=== PATIENT | female | born 1990 | race Caucasian/White ===

== ENCOUNTER 2017-01-03 11:05 | Emergency (ER) | payer SELFPAY ==
--- NOTE | 2017-01-03 14:52 | ED CLINICAL REPORT ---
Clinical Report - Physicians/Mid Levels [facility] [address] [place] [address] 01/03/2017 11:06 Patient: SHAD STEINER Time Seen: 1142; initial patient contact. Arrived- By private vehicle. Historian- patient. HISTORY OF PRESENT ILLNESS Chief Complaint: ABDOMINAL PAIN. It is described as sharp. No radiation. It is described as located in the right upper quadrant. This started past 2 days and is still present and worsening. It was abrupt in onset and has been constant but is not gone now. At its maximum, severity described as moderate. When seen in the E.D., severity described as moderate. Modifying factors. Not worsened by anything. Not relieved by anything. The patient has had nausea. No loss of appetite, vomiting or diarrhea. No additional abdominal pain. Similar symptoms previously: None. Recent medical care: Not recently seen/assessed. REVIEW OF SYSTEMS All systems otherwise negative, except as recorded above. PAST HISTORY See nurses notes. Problems: no known problems. Medications: Ibuprofen Oral 800 mg, PRN, last dose 0700. None. Allergies: No Known Drug Allergy. SOCIAL HISTORY Never smoker. Occasional alcohol use. History of occasional drug use: marijuana. No recent travel. Is a local resident. ADDITIONAL NOTES The nursing notes have been reviewed. PHYSICAL EXAM Vital Signs: 01/03/2017 11:10 BP: 125/78. HR: 82. RR: 18. O2 saturation: 100%. Temp: 98.2 F. Pain level now: 6/10. Blood pressure normal. Oxygen saturation normal. Appearance: Alert. Oriented X3. No acute distress. Eyes: Pupils equal, round and reactive to light. Eyes normal inspection. ENT: Ears normal. Nose normal. Pharynx normal. Neck: Normal inspection. Neck supple. CVS: Normal heart rate and rhythm. Heart sounds normal. Pulses normal. Respiratory: No respiratory distress. Breath sounds normal. Chest nontender. No rales, rhonchi or wheezes. Abdomen: Soft and nontender. Bowel sounds normal. Skin: Skin warm and dry. Normal skin color. No rash. Abnormal skin turgor. Extremities: Extremities exhibit normal ROM. No lower extremity edema. LABS, X-RAYS, AND EKG Abdominal Sonogram: Normal study. The gallbladder is normal. Common duct is normal. The study was independently viewed by me and interpreted by the radiologist. The study was discussed with the radiologist (via pacs). Laboratory Tests: UA-Culture if indicated: (BECK: 01/03/2017 11:20) ( [facility] 01/03/2017 13:40) Final results Test Result Flag Units (Reference) URINE COLOR YELLOW URINE APPEARANCE CLOUDY URINE GLUCOSE NEGATIVE (NEGATIVE) URINE BILIRUBIN NEGATIVE (NEGATIVE) URINE KETONE NEGATIVE (NEGATIVE) URINE SPECIFIC GRAVITY 1.025 (1.010-1.030) URINE PH 6.0 (5.0-8.0) URINE PROTEIN 1+ (NEGATIVE) URINE UROBILINOGEN 1.0 EU/dL (0.2-1.0) URINE NITRITE NEGATIVE (NEGATIVE) URINE BLOOD NEGATIVE (NEGATIVE) URINE LEUK ESTERASE NEGATIVE (NEGATIVE) URINE RBC NONE SEEN rbc/hpf (0-1) URINE WBC 1-3 wbc/hpf (0-1) URINE EPITHELIAL CELLS 3-5 EPI/hpf (0-5) URINE BACTERIA NONE SEEN (NONE SEEN) URINE COMMENT CULT NOT INDICATED 4+ MUCUSURINE CULTURES ARE SET-UP BASED ON THE FOLLOWING CRITERIA:POSITIVE NITRITEPOSITIVE LEUKOCYTE ESTERASEGREATER THAN 10 WHITE BLOOD CELLSMODERATE (2+) OR GREATER BACTERIA Urine: (BECK: 01/03/2017 13:10) ( [facility] 01/03/2017 13:32) Final results Test Result Flag Units (Reference) URINE NEGATIVE CBC w Diff: (BECK: 01/03/2017 13:10) ( [facility] 01/03/2017 13:52) Final results Test Result Flag Units (Reference) WHITE BLOOD COUNT 4.8 K/uL (4.5-11.5) RED BLOOD COUNT 4.20 M/uL (4.00-5.20) HEMOGLOBIN 12.3 gm/dL (12.0-16.0) HEMATOCRIT 36.8 % (36.0-46.0) MEAN CELL VOLUME 88 fL (80-100) MEAN CORPUSCULAR HGB 29 pg (26-34) MEAN CORPUSCULAR HGB CONC 34 g/dL (31-37) RED CELL DISTRIBUTION WIDTH 12.7 % (11.6-14.8) PLATELET COUNT 227 K/uL (150-400) NEUTROPHIL % 64.7 % (50-75) LYMPH % 25.8 % (25-40) MONO % 6.2 % (3-14) EOSINOPHIL % 2.8 % (0-4) BASOPHIL % 0.5 % (0-2) CMP: (BECK: 01/03/2017 13:10) ( MsgRcvd 01/03/2017 13:50) Final results Test Result Flag Units (Reference) GLUCOSE 85 mg/dL (70-110) BUN 10 mg/dL (7-18) CREATININE 0.4 L mg/dL (0.6-1.3) Estimated GFR >60 mL/min Estimated GFR- >60 mL/min Note: Persistent reduction over 3 months in eGFR<60 mL/min/1.73 m2 defines CKD. Patients with eGFR values>=60 mL/min/1.73 m2 may also have CKD if evidence ofpersistent proteinuria. Additional information may be foundat www.kidney.org. SODIUM 142 mmol/L (136-145) POTASSIUM 3.5 mmol/L (3.5-5.1) CHLORIDE 105 mmol/L (98-107) CARBON DIOXIDE 31 mmol/L (21-32) CALCIUM 8.3 L mg/dL (8.5-10.1) TOTAL PROTEIN 6.3 L g/dL (6.4-8.2) ALBUMIN 3.4 g/dL (3.3-5.0) BILIRUBIN, TOTAL 0.4 mg/dL (0.0-1.0) ALKALINE PHOSPHATASE 53 U/L (46-116) AST (SGOT) 21 U/L (15-37) ALT (SGPT) 26 U/L (12-78) LIPASE 121 U/L (73-393) . PROGRESS AND PROCEDURES Course of Care: the patient is a 26 female presenting for eval ration of right upper quadrant abdominal pain. When directly asked the patient where abdominal pain is, patient points to the right upper quadrant. This is in contrast was accorded fromnursing triage notes. Patient without tenderness in the right lower quadrant. Do not feel patient has acute appendicitis. At this time differential diagnosis includes biliary colic, gastritis, pancreatitis, urinary tract infection. Patient also with history of recent NSAID use. The patient's workup was remarkable for the findings above. No acute findings noted on patient's ultrasound. Urinalysis and laboratory studies are otherwise unremarkable. Because of the patient's negative workup here in the emergency Department in improved symptoms with interventions provided here, do not feel patient requires admission to the hospital require further emergency department workup/evaluation or admission to the hospital. Prior to Departure from the emergency department, patient's repeat abdominal exam continues to be benign and reassuring. Disposition: Discharged. Condition: good. CLINICAL IMPRESSION Moderate nausea. Acute gastritis Acute right upper quadrant abdominal pain. INSTRUCTIONS Warnings: GENERAL WARNINGS: Return or contact your physician immediately if your condition worsens or changes unexpectedly, if not improving as expected, or if other problems arise. SPECIFICALLY, return if you develop pain, fever, vomiting, the inability to keep fluids down, blood in vomitus, blood in diarrhea, fainting or lightheadedness. Your Current Medications: STOP TAKING THE FOLLOWING MEDICATIONS: Ibuprofen Oral : 800 mg PRN, Last: 0700. CONTINUE TAKING THE FOLLOWING MEDICATIONS: None*. Prescription Medications: Zofran (orally disintegrating tablets) 4 mg: take 1 orally every 8 hours as needed for nausea and vomiting. Dispense ten (10). No refill. Substitution is permissible. Pepcid 20 mg: take 1 orally every 12 hours. Dispense thirty (30). No refills. Substitution is permissible. (Take for 15 days) Follow-up: Return to the emergency department as needed. Follow up with your doctor in three. Reason for referral: recheck today's concerns. Summary of care provided to patient via paper. Screening today revealed the patient's blood pressure to be in the normal range. The patient should follow up with a primary care provider for blood pressure management. Understanding of the discharge instructions verbalized by patient. (Electronically signed by Andres English Dr. 01/05/2017 5:33)
--- NOTE | 2017-01-03 14:52 | ED ORDER SUMMARY ---
..... Patient: SHAD STEINER OrderSheet [facility] VisitID: [id number] [place] [address] 26y, F Registration Date/Time: 01/03/2017 ORDER SHEET Weight: 47.1 kg (stated) Allergies: No Known Drug Allergy GENERAL ORDERS: UA-Culture if indicated Urgent (11:51 01/03/2017 Melanie Orellana) (Ack 11:51 Elissa) (13:37 DDean R.N.) (Cancelled: Duplicate Order13:37 DDean R.N.) US Abdomen Limited (No) Urgent (12:05 01/03/2017 Melanie Orellana) (Ack 12:08 Elissa) (14:43 KHoerner) CMP Urgent (12:01/03/2017 Melanie Orellana) (Ack 12:08 Elissa) (13:37 DDean R.N.) CBC w Diff Urgent (12:05 01/03/2017 Melanie Orellana) (Ack 12:08 Elissa) (13:37 DDean R.N.) UA-Culture if indicated Urgent (12:05 01/03/2017 Melanie Orellana) (Ack 12:08 Elissa) (13:37 DDean R.N.) Lipase Urgent (12:05 01/03/2017 Melanie Orellana) (Ack 12:08 Elissa) (13:37 DDean R.N.) Urine Urgent (12:05 01/03/2017 Melanie Orellana) (Ack 12:08 Elissa) (13:37 DDean R.N.) MEDICATION ORDERS: IV FLUIDS: Morphine IV 4 mg (HIGH ALERT MEDICATION, NOW) (12:40 01/03/2017 Melanie Orellana) (Ack 12:51 DDean R.N.) (13:39 DDean R.N.) Zofran IV 4 mg (NOW) (12:40 01/03/2017 Melanie Orellana) (Ack 12:51 DDean R.N.) (13:40 DDean R.N.) IV NS : initial bolus none -, then 1000 mL/hr for X2 (NOW) (13:38 01/03/2017 DDean R.N. per protocol) (13:40 DDean R.N.) ORDER SHEET NOTES: [Electronically signed by Nya Calderon R.N. (15:16 01/03/2017)] [Electronically signed by Andres English Dr. (05:33 01/05/2017)] [Electronically locked/signed by Nya Calderon R.N. (15:16 01/03/2017)]
--- NOTE | 2017-01-03 14:52 | ED NURSING NOTES ---
Clinical Report - Nurses Merged With [facility] [address] [place] [address] 01/03/2017 11:06 Patient: SHAD STEINER TRIAGE Triage time 1110. Acuity: LEVEL 3. Chief Complaint: ABDOMINAL PAIN. 11:10. --11:19 Nya Calderon R.N. 11:10 01/03/17. BP: 125/78. HR: 82. RR: 18. O2 saturation: 100%. Temp: 98.2 F. Pain level now: 12/19. --11:19 Nya Calderon R.N. Weight: 47.1 kg stated. Height/Length: 61 inches Per Patient. BMI: 19.6. --11:17 Nya Calderon R.N. Medications Ibuprofen Oral 800 mg, PRN, last dose 0700. None. --11:16 Nya Calderon R.N. Allergies No Known Drug Allergy. --11:16 Nya Calderon R.N. History Arrived by private vehicle. Historian: patient. Unaccompanied. No primary care physician. Onset. (wends, getting progressively worse - was generalized abd pain, now settling in to RLQ). She has had nausea, diarrhea and abdominal pain. PAST MEDICAL HX: Negative. Last normal menstrual period- 2 weeks. SURGERY HX: (x2). Tubal ligation. SOCIAL HX: Never smoker. Occasional alcohol use. History of drug use: marijuana. --11:19 Nya Calderon R.N. Interventions ID band on patient. To treatment room. --11:19 Nya Calderon R.N. PHYSICAL ASSESSMENT 11:10. Ambulatory to room. Patient gowned. GENERAL / NEURO / PSYCH: Alert. Oriented X 4. Appears in no acute distress. RESPIRATORY: Respirations not labored. CVS: Capillary refill less than 2 seconds. GI / : The patient has had nausea. Abdomen soft. SKIN: Skin is warm and dry. --11:20 Nya Calderon R.N. NURSING PROGRESS NOTES 11:10. Patient gowned. Head of bed elevated. Reassurance given. Patient identifiers checked. Call light placed in reach. Side rails up. Bed placed in lowest position. Patient ready for evaluation- chart flagged. --11:19 Nya Calderon R.N. 13:10 01/03/2017 Site #1 started via IV in the right antecubital space with an 20g angiocath, with aseptic technique and good blood return; one attempt. Blood drawn: rainbow set. Labeled in the presence of the patient and sent to the lab. Saline lock flushed with saline. --13:38 Nya Calderon R.N. 13:10 01/03/2017 Started bag #1 1000 mL IV Fluids IV NS (Saline); at 1000 mL/hr over 1 hour(s) via site #1 via IV pump. IV patency established. IV site checked: no pain, redness, or swelling. IV flushed thoroughly pre- and post-medication administration. --13:40 Nya Calderon R.N. 13:12 01/03/2017 Zofran (Ondansetron HCl) IVP 4 mg given over 1 minute(s) via site #1. IV patency established. IV site checked: no pain, redness, or swelling. IV flushed thoroughly pre- and post-medication administration. IVP given by RN. --13:40 Nya Calderon R.N. 13:14 01/03/2017 Morphine IVP 4 mg given over 1 minute(s) via site #1. Sedative warning given to the patient. IV patency established. IV site checked: no pain, redness, or swelling. IV flushed thoroughly pre- and post-medication administration. IVP given by RN. --13:39 Nya Calderon R.N. 12:30. Patient ID band checked for patient name and birthdate: patient confirmed. Clean catch urine collected with return of yellow-colored clear urine; sample sent to lab for urinalysis, culture and HCG. Specimen labeled in the presence of the patient. --13:41 Nya Calderon R.N. 12:30 01/03/17. BP: 103/62. HR: 67. RR: 18. O2 saturation: 99%. Temp: deferred. Pain level now: 12/19. --13:42 Nya Calderon R.N. 13:10. ( IV start and blood sent). --13:42 Nya Calderon R.N. 13:40 01/03/17. BP: 99/57. HR: 74. RR: 18. O2 saturation: 100%. Temp: deferred. Pain level now: 08/21. --13:49 Nya Calderon R.N. 14:05 US at bedside doing exm. --14:16 Nya Calderon R.N. 14:36 01/03/2017 IV Fluids IV NS Discontinued: bag #1 infused. Total amount infused: 1000 mL. IV patency established. IV site checked: no pain, redness, or swelling. IV flushed thoroughly. --14:36 Romi Leija R.N. 14:50 01/03/2017 Site #1 removed upon discharge. Bandaid applied. --15:16 Nya Calderon R.N. DISPOSITION / DISCHARGE 15:00. Condition at departure: improved and stable. No learning barriers present. Discharge instructions provided and reviewed with the patient. Reviewed medication(s) (zofran, pepcid). Patient verbalized understanding. Written instructions provided in Croatian. The patient was discharged home and accompanied by manufacturers representative. She left the Emergency Department ambulatory and via private vehicle. Driving (aunt). --15:15 Nya Calderon R.N. 15:00 01/03/17. BP: 105/54. HR: 63. RR: 16. O2 saturation: 99%. Temp: deferred. Pain level now: 08/21. --15:15 Nya Calderon R.N. Locked/Released at 01/03/2017 15:16 by Nya Calderon R.N.
--- NOTE | 2017-01-03 14:52 | ED ORDER SUMMARY ---
..... Patient: SHAD STEINER OrderSheet [facility] VisitID: [id number] [place] [address] 26y, F Registration Date/Time: 01/03/2017 ORDER SHEET Weight: 47.1 kg (stated) Allergies: No Known Drug Allergy GENERAL ORDERS: UA-Culture if indicated Urgent (11:51 01/03/2017 Melanie Orellana) (Ack 11:51 Elissa) (13:37 DDean R.N.) (Cancelled: Duplicate Order13:37 DDean R.N.) US Abdomen Limited (No) Urgent (12:05 01/03/2017 Melanie Orellana) (Ack 12:08 Elissa) (14:43 KHoerner) CMP Urgent (12:01/03/2017 Melanie Orellana) (Ack 12:08 Elissa) (13:37 DDean R.N.) CBC w Diff Urgent (12:05 01/03/2017 Melanie Orellana) (Ack 12:08 Elissa) (13:37 DDean R.N.) UA-Culture if indicated Urgent (12:05 01/03/2017 Melanie Orellana) (Ack 12:08 Elissa) (13:37 DDean R.N.) Lipase Urgent (12:05 01/03/2017 Melanie Orellana) (Ack 12:08 Elissa) (13:37 DDean R.N.) Urine Urgent (12:05 01/03/2017 Melanie Orellana) (Ack 12:08 Elissa) (13:37 DDean R.N.) MEDICATION ORDERS: IV FLUIDS: Morphine IV 4 mg (HIGH ALERT MEDICATION, NOW) (12:40 01/03/2017 Melanie Orellana) (Ack 12:51 DDean R.N.) (13:39 DDean R.N.) Zofran IV 4 mg (NOW) (12:40 01/03/2017 Melanie Orellana) (Ack 12:51 DDean R.N.) (13:40 DDean R.N.) IV NS : initial bolus none -, then 1000 mL/hr for X2 (NOW) (13:38 01/03/2017 DDean R.N. per protocol) (13:40 DDean R.N.) ORDER SHEET NOTES: [Electronically signed by Nya Calderon R.N. (15:16 01/03/2017)] [Electronically signed by Andres English Dr. (05:33 01/05/2017)] [Electronically locked/signed by Nya Calderon R.N. (15:16 01/03/2017)]
--- NOTE | 2017-01-03 15:53 | DIAGNOSTIC IMAGING REPORT ---
PROCEDURE: US ABDOMEN ULTRASOUND-LIMITED INDICATION: RUQ PAIN TECHNIQUE: Harris scale and color Doppler sonographic images were obtained of the right upper quadrant. COMPARISON: None. FINDINGS: The liver is normal in size, contour, and echotexture. No mass or biliary dilatation. The gallbladder is normal without stones or sludge. Normal wall thickness at 1.6 mm No pericholecystic fluid or Tierney's sign. Normal common duct at 4.5 mm. The visible portion of the inferior vena cava, abdominal aorta, and portal vein appear normal with appropriate direction of flow in the portal vein. The right kidney is normal measuring 11.3 cm No free fluid in the right upper quadrant. IMPRESSION: 1. Normal right upper quadrant ultrasound.
--- NOTE | 2017-01-05 05:34 | ED MED RECONCILIATION SUMMARY ---
Patient: SHAD STEINER Medication Reconciliation Report [facility] VisitID: [id number] [place] [address] 26y, F Registration Date/Time: 01/03/2017 Weight: 47.1 kg Height/Length: 61 in. BMI: 19.6 ALLERGIES: No Known Drug Allergy The patient's Home Medications are listed below: STOP TAKING THE FOLLOWING MEDICATIONS: Ibuprofen Oral 800 mg, PRN, last dose: 0700 The source(s) of the original Home Medication information: Not obtained. The following Medications were given to the patient in the Emergency Department: Morphine [IVP] IVP 4 mg, administered: 01/03/2017 1:14:00 PM Zofran [IVP] IVP 4 mg, administered: 01/03/2017 1:12:00 PM IV NS IV Fluids bolus 0, then 1000 mL/hr, administered: 01/03/2017 1:10:00 PM The following Medications were prescribed to the patient: Zofran (orally disintegrating tablets) 4 mg: take 1 orally every 8 hours as needed for nausea and vomiting. Dispense ten (10). No refill. Substitution is permissible. -- Andres English Dr. Pepcid 20 mg: take 1 orally every 12 hours. Dispense thirty (30). No refills. Substitution is permissible.(Take for 15 days) -- Andres English Dr.
--- NOTE | 2017-01-05 05:34 | ED MAR SUMMARY ---
..... Medication Administration Record [facility] [address] [place] [address] Patient: SHAD STEINER Visit ID: [id number] 26y, F Weight: 47.1 kg Height/Length: 61 in BMI: 19.6 ALLERGIES: No Known Drug Allergy Start 13:10 01/03/2017 Nya Calderon R.N., Stop 14:36 01/03/2017 Romi Leija R.N. Medication Administered: IV NS (SALINE), Dose: IV Fluids over 1 hour(s), Rate: 1000 mL/hr, Dispensed: 1000 mL bag, Site: #1 right AC. Medication Ordered: IV NS : initial bolus none -, then 1000 mL/hr for X2 (NOW). Given 13:12 01/03/2017 Nya Calderon R.N. Medication Administered: ZOFRAN [IVP] (ONDANSETRON HCL), Dose: 4 mg IVP over 1 minute(s), Site: #1 right AC. Medication Ordered: Zofran IV 4 mg (NOW). Given 13:14 01/03/2017 Nya Calderon R.N. Medication Administered: MORPHINE [IVP], Dose: 4 mg IVP over 1 minute(s), Site: #1 right AC. Medication Ordered: Morphine IV 4 mg (HIGH ALERT MEDICATION, NOW).
--- NOTE | 2017-01-05 05:34 | ED MED RECONCILIATION SUMMARY ---
Patient: SHAD STEINER Medication Reconciliation Report [facility] VisitID: [id number] [place] [address] 26y, F Registration Date/Time: 01/03/2017 Weight: 47.1 kg Height/Length: 61 in. BMI: 19.6 ALLERGIES: No Known Drug Allergy The patient's Home Medications are listed below: STOP TAKING THE FOLLOWING MEDICATIONS: Ibuprofen Oral 800 mg, PRN, last dose: 0700 The source(s) of the original Home Medication information: Not obtained. The following Medications were given to the patient in the Emergency Department: Morphine [IVP] IVP 4 mg, administered: 01/03/2017 1:14:00 PM Zofran [IVP] IVP 4 mg, administered: 01/03/2017 1:12:00 PM IV NS IV Fluids bolus 0, then 1000 mL/hr, administered: 01/03/2017 1:10:00 PM The following Medications were prescribed to the patient: Zofran (orally disintegrating tablets) 4 mg: take 1 orally every 8 hours as needed for nausea and vomiting. Dispense ten (10). No refill. Substitution is permissible. -- Andres English Dr. Pepcid 20 mg: take 1 orally every 12 hours. Dispense thirty (30). No refills. Substitution is permissible.(Take for 15 days) -- Andres English Dr.
--- NOTE | 2017-01-05 05:34 | ED MAR SUMMARY ---
..... Medication Administration Record [facility] [address] [place] [address] Patient: SHAD STEINER Visit ID: [id number] 26y, F Weight: 47.1 kg Height/Length: 61 in BMI: 19.6 ALLERGIES: No Known Drug Allergy Start 13:10 01/03/2017 Nya Calderon R.N., Stop 14:36 01/03/2017 Romi Leija R.N. Medication Administered: IV NS (SALINE), Dose: IV Fluids over 1 hour(s), Rate: 1000 mL/hr, Dispensed: 1000 mL bag, Site: #1 right AC. Medication Ordered: IV NS : initial bolus none -, then 1000 mL/hr for X2 (NOW). Given 13:12 01/03/2017 Nya Calderon R.N. Medication Administered: ZOFRAN [IVP] (ONDANSETRON HCL), Dose: 4 mg IVP over 1 minute(s), Site: #1 right AC. Medication Ordered: Zofran IV 4 mg (NOW). Given 13:14 01/03/2017 Nya Calderon R.N. Medication Administered: MORPHINE [IVP], Dose: 4 mg IVP over 1 minute(s), Site: #1 right AC. Medication Ordered: Morphine IV 4 mg (HIGH ALERT MEDICATION, NOW).
--- NOTE | 2017-01-05 05:34 | ED DISCHARGE INSTRUCTIONS ---
Patient: SHAD STEINER General Instructions Formerly [facility] VisitID: [id number] [place] [address] 26y, F Registration Date/Time: 01/03/2017 Moderate nausea. Acute gastritis Acute right upper quadrant abdominal pain. INSTRUCTIONS Warnings: GENERAL WARNINGS: Return or contact your physician immediately if your condition worsens or changes unexpectedly, if not improving as expected, or if other problems arise. SPECIFICALLY, return if you develop pain, fever, vomiting, the inability to keep fluids down, blood in vomitus, blood in diarrhea, fainting or lightheadedness. Your Current Medications: STOP TAKING THE FOLLOWING MEDICATIONS: Ibuprofen Oral : 800 mg PRN, Last: 0700. CONTINUE TAKING THE FOLLOWING MEDICATIONS: None*. Prescription Medications: Zofran (orally disintegrating tablets) 4 mg: take 1 orally every 8 hours as needed for nausea and vomiting. Dispense ten (10). No refill. Substitution is permissible. Pepcid 20 mg: take 1 orally every 12 hours. Dispense thirty (30). No refills. Substitution is permissible. (Take for 15 days) Follow-up: Return to the emergency department as needed. Follow up with your doctor in three. Reason for referral: recheck today's concerns. Summary of care provided to patient via paper. Screening today revealed the patient's blood pressure to be in the normal range. The patient should follow up with a primary care provider for blood pressure management. Understanding of the discharge instructions verbalized by patient. ADDITIONAL INFORMATION Abdominal Pain, Unknown Cause (Female) The exact cause of your abdominal (stomach) pain is not certain. This does not mean that this is something to worry about, or the right tests were not done. Everyone likes to know the exact cause of the problem, but sometimes with abdominal pain, there is no clear-cut cause, and this could be a good thing. The good news is that your symptoms can be treated, and you will feel better. Your condition does not seem serious now; however, sometimes the signs of a serious problem may take more time to appear. For this reason,it is important for you to watch for any new symptoms, problems,or worsening of your condition. Over the next few days, the abdominal pain may come and go, or be continuous. Other common symptoms can include nausea and vomiting. Sometimes it can be difficult to tell if you feel nauseous, you may just feel bad and not associate that feeling with nausea. Constipation, diarrhea, and a fever may go along with the pain. The pain may continue even if treated correctly over the following days. Depending on how things go, sometimes the cause can become clear and may require further or different treatment. Additional evaluations, medications, or tests may be needed. Home care Your health care provider may prescribe medications for pain, symptoms, or an infection. Follow the health care provider's instructions for taking these medications. General care Rest until your next exam. No strenuous activities. Try to find positions that ease discomfort. A small pillow placed on the abdomen may help relieve pain. Something warm on your abdomen (such as a heating pad) may help, but be careful not to burn yourself. Diet Do not force yourself to eat, especially if having cramps, vomiting, or diarrhea. Water is important so you do not get dehydrated. Soup may also be good. Sports drinks may also help, especially if they are not too acidic. Make sure you don't drink sugary drinks as this can make things worse. Take liquids in small amounts. Do not guzzle them. Caffeine sometimes makes the pain and cramping worse. Avoid dairy products if you have vomiting or diarrhea. Don't eat large amounts at a time. Wait a few minutes between bites. Eat a diet low in fiber (called a low-residue diet). Foods allowed include refined breads, white rice, fruit and vegetable juices without pulp, tender meats. These foods will pass more easily through the intestine. Avoid whole-grain foods, whole fruits and vegetables, meats, seeds and nuts, fried or fatty foods, dairy, alcohol and spicy foods until your symptoms go away. Follow-up care Follow up with your health care provider as instructed, or if your pain does not begin to improve in the next 24 hours. When to seek medical care Seek prompt medical care if any of the following occur: Pain gets worse or moves to the right lower abdomen New or worsening vomiting or diarrhea Swelling of the abdomen Unable to pass stool for more than three days Fever of 100.4F (38C) or higher, or as directed by your healthcare provider. Blood in vomit or bowel movements (dark red or black color) Jaundice (yellow color of eyes and skin) Weakness, dizziness Chest, arm, back, neck or jaw pain Unexpected vaginal bleeding or missed period Call 911 Call emergency services if any of the following occur: Trouble breathing Confusion Fainting or loss of consciousness Rapid heart rate Seizure Gastritis Versus Ulcer (No Antibiotic Tx) The symptoms of gastritis and peptic ulcer are very similar. Both can cause a dull ache or burning pain in the upper abdomen. Other symptoms include nausea, vomiting, loss of appetite, and belching or bloating. Blood in the vomit or stools (red or black) is a sign of bleeding in the stomach. This requires immediate medical attention. A Peptic Ulcer is an open sore in the lining of the stomach or duodenum (upper intestine). The most common cause of peptic ulcer disease is a bacterial infection (H pylori) in the stomach. Another common cause is taking anti-inflammatory medications (such as ibuprofen, prednisone, and aspirin). Gastritis is an irritation of the stomach lining. It can be acute (recent) or chronic (lasting a long time). Gastritis can be caused by overuse of alcohol or anti-inflammatory medications (such as aspirin, ibuprofen, prednisone). H pyloriinfection can also cause chronic gastritis. Tests for H pyloriare used to screen for bacterial infection. If no infection is found, ulcer and gastritis can be treated by stopping the cause, such as anti-inflammatory medications, alcohol, caffeine, and tobacco, and treating with antacids plus an acid marisela medication. If H pylori infection is found, antibiotics will be prescribed along with an acid marisela. Persons 55 years and older may undergo other tests before treatment is started. Two common tests are used to evaluate your symptoms. An upper GI series is an x-ray taken after you drink a chalky liquid called barium. This coats the stomach and allows an ulcer to show up on the x-ray. Another test is called endoscopy during which a long thin tube called an endoscope is passed down your throat to the stomach. A camera at the end of the scope allows the doctor to view inside the stomach to check the cause of your symptoms. Home Care: Take the prescribed acid marisela medication for the full course of treatment even if you begin to feel better sooner. This medication can take up to several days to fully control your symptoms. If you cant afford the prescribed medication, you can try [id number] acid blockers, such as Pepcid AC, Tagamet, Zantac, or Aciphex. If these do not relieve your symptoms, a stronger acid-marisela can be tried, such as Prilosec OTC. If you have been prescribed an antibiotic to treat H pyloriinfection, finish the full course of medication. Do so even if you begin to feel better sooner. If you stop the medication too soon, the infection can return and be harder to treat. You can use antacids, such as Tums, Rolaids, Mylanta, or Maalox, for pain. This will be useful the first few days after starting acid blockers when the blockers havent started working yet. Follow the directions on the label. Liquid antacids may work better than tablets. Note that antacids can interfere with absorption of certain medications. Specifically, do not take Tagamet (cimetidine), Zantac (ranitidine), or Carafate (sucralfate) within 1 hour of taking an antacid. Talk with your pharmacist if you have any questions. Although foods do not cause an ulcer, symptoms can be worsened by certain foods. Limit or avoid fatty, fried, and spicy foods, as well as coffee, chocolate, mint, and foods with high acid content such as tomatoes and citrus fruit and juices (orange, grapefruit, lemon). Avoid alcohol, caffeine, and tobacco, which can delay healing. Avoid aspirin and anti-inflammatory medications such as ibuprofen (Advil, Motrin) and naproxen (Naprosyn, Aleve). Acetaminophen (Tylenol) is safe to use. Do not take more than the amount listed on the label. Follow Up with your doctor or as advised. Further testing may be needed. If you do not begin to improve over the next 4 days, contact your doctor. If you had tests, youll be notified of any new findings that affect your care. Get Prompt Medical Attention if any of the following occur: Stomach pain gets worse or moves to the lower right abdomen (appendix area) Chest pain appears or gets worse, or spreads to the back, neck, shoulder, or arm Frequent vomiting (cant keep down liquids) Blood in the stool or vomit (red or black in color) Feeling weak or dizzy, fainting, or trouble breathing Fever of 100.4F (38C) or higher, or as directed by your healthcare provider Ondansetron Oral disintegrating tablet What is this medicine? ONDANSETRON (on MANJEET se boris) is used to treat nausea and vomiting caused by chemotherapy. It is also used to prevent or treat nausea and vomiting after surgery. How should I use this medicine? These tablets are made to dissolve in the mouth. Do not try to push the tablet through the foil backing. With dry hands, peel away the foil backing and gently remove the tablet. Place the tablet in the mouth and allow it to dissolve, then swallow. While you may take these tablets with water, it is not necessary to do so. Talk to your hospitality coordinator regarding the use of this medicine in children. Special care may be needed. What side effects may I notice from receiving this medicine? Side effects that you should report to your doctor or health neurocritical care physician as soon as possible: allergic reactions like skin rash, itching or hives, swelling of the face, lips, or tongue breathing problems dizziness fast or irregular heartbeat feeling faint or lightheaded, falls fever and chills swelling of the hands and feet tightness in the chest Side effects that usually do not require medical attention (report to your doctor or health neurocritical care physician if they continue or are bothersome): constipation or diarrhea headache What may interact with this medicine? Do not take this medicine with any of the following medications: -apomorphine -cisapride -dofetilide -dronedarone -pimozide -thioridazine -ziprasidone This medicine may also interact with the following medications: -carbamazepine -phenytoin -rifampicin -tramadol -other medicines that prolong the QT interval (cause an abnormal heart rhythm) What if I miss a dose? If you miss a dose, take it as soon as you can. If it is almost time for your next dose, take only that dose. Do not take double or extra doses. Where should I keep my medicine? Keep out of the reach of children. Store between 2 and 30 degrees C (36 and 86 degrees F). Throw away any unused medicine after the expiration date. What should I tell my health care provider before I take this medicine? They need to know if you have any of these conditions: heart disease history of irregular heartbeat liver disease low levels of magnesium or potassium in the blood an unusual or allergic reaction to ondansetron, granisetron, other medicines, foods, dyes, or preservatives or trying to get breast-feeding What should I watch for while using this medicine? Check with your doctor or health neurocritical care physician as soon as you can if you have any sign of an allergic reaction. Famotidine Oral tablet What is this medicine? FAMOTIDINE (eh lopez) is a type of antihistamine that blocks the release of stomach acid. It is used to treat stomach or intestinal ulcers. It can also relieve heartburn from acid reflux. How should I use this medicine? Take this medicine by mouth with a glass of water. Follow the directions on the prescription label. If you only take this medicine once a day, take it at bedtime. Take your doses at regular intervals. Do not take your medicine more often than directed. Talk to your hospitality coordinator regarding the use of this medicine in children. Special care may be needed. What side effects may I notice from receiving this medicine? Side effects that you should report to your doctor or health neurocritical care physician as soon as possible: agitation, nervousness confusion hallucinations skin rash, itching Side effects that usually do not require medical attention (report to your doctor or health neurocritical care physician if they continue or are bothersome): constipation diarrhea dizziness headache What may interact with this medicine? delavirdine itraconazole ketoconazole What if I miss a dose? If you miss a dose, take it as soon as you can. If it is almost time for your next dose, take only that dose. Do not take double or extra doses. Where should I keep my medicine? Keep out of the reach of children. Store at room temperature between 15 and 30 degrees C (59 and 86 degrees F). Do not freeze. Throw away any unused medicine after the expiration date. What should I tell my health care provider before I take this medicine? They need to know if you have any of these conditions: kidney or liver disease trouble swallowing an unusual or allergic reaction to famotidine, other medicines, foods, dyes, or preservatives or trying to get breast-feeding What should I watch for while using this medicine? Tell your doctor or health neurocritical care physician if your condition does not start to get better or if it gets worse. Finish the full course of tablets prescribed, even if you feel better. Do not take with aspirin, ibuprofen or other antiinflammatory medicines. These can make your condition worse. Do not smoke cigarettes or drink alcohol. These cause irritation in your stomach and can increase the time it will take for ulcers to heal. If you get black, tarry stools or vomit up what looks like coffee grounds, call your doctor or health neurocritical care physician at once. You may have a bleeding ulcer. You have been given the following additional information: Abdominal Pain, Unknown Cause, (Female) Gastritis Vs. Ulcer Ondansetron Oral disintegrating tablet Famotidine Oral tablet (Electronically signed by Andres English Dr. 01/05/2017 5:33)
== END 2017-01-03 15:00 | disposition home or self-care (01) ==
LOC: ED SRH 11:05
DX: K29.00 Acute gastritis without bleeding (principal); R10.11 Right upper quadrant pain; R11.0 Nausea; Z79.1 Long term (current) use of non-steroidal anti-inflammatories (NSAID)
CPT/HCPCS: 90004; 90100; 92235; 93070; 95059